=== PATIENT | male | born 2000 | race Caucasian/White ===

== ENCOUNTER 2022-05-13 16:05 | Emergency (ER) | payer OTHER ==
[2022-05-13] MEDS ORDERED: OMNICEF 300 MG300 MG PO (21:06)
[2022-05-15 21:08] LABS: CHLAMYDIA TRACHOMATIS, NAA Negative (Negative); NEISSERIA GONORRHOEAE, NAA Negative (Negative)
== END 2022-05-13 22:50 | disposition home or self-care (01) ==
LOC: ER1 16:05
PROVIDERS: Emergency Medicine
DX: N50.812 Left testicular pain (principal); F17.290 Nicotine dependence, other tobacco product, uncomplicated
CPT/HCPCS: 76870; 81001; 96372; 99284; J0696